=== PATIENT | male | born 1955 | race Caucasian/White ===

== ENCOUNTER 2025-08-25 12:31 | Emergency (ER) | payer MEDICARE ==
[~2025-08-25] VITALS: Ht 188 cm; Wt 109.1 kg
[2025-08-25] MEDS ORDERED: TAMSULOSIN HCL0.4 MG PO (12:45)
[2025-08-25] MEDS ORDERED: HYDROmorphone HCL 1 MG/ML SYR IV ONE (13:00)
[2025-08-25 13:13] LABS: BLOOD/HGB, URINE LARGE (Negative); KETONE, URINE TRACE (Negative); LEUK ESTERASE, URINE SMALL (negative); NITRITE, URINE POSITIVE (negative)
[2025-08-25 13:24] LABS: BASOPHILS 0.4 % (0.2-1.2); EOSINOPHILS 1.0 % (0.8-7.0); LYMPHOCYTES 8.5 % (21.8-53.1); MCH 29.9 PG (25.7-32.2); MCHC 32.9 g/dL (32.3-36.5); MCV 90.8 fL (79.0-92.2); MONOCYTES 7.7 % (5.3-12.2); NEUTROPHILS 81.6 % (34.0-67.9); RBC 5.22 M/uL (4.63-6.08)
[2025-08-25 13:26] LABS: BACTERIA, URINE RARE /hpf (negative); CASTS, URINE NONE SEEN \\lpf; CRYSTALS, URINE NONE SEEN (0-1+); EPITHELIAL CELLS, URINE 0 /lpf (0-1+); REFLEX CULTURE, URINE Yes (No)
[2025-08-25 13:42] LABS: ALT (SGPT) 16.0 U/L (14-59); AST (SGOT) 23.0 U/L (15-37); GLOMERULAR FILTRATION RATE,EST 95.0 mL/min (>60); PROTEIN, TOTAL 6.9 g/dL (6.4-8.2); UREA NITROGEN 19.0 mg/dL (7-18)
[2025-08-25 14:43] VITALS: BP 144/76
[2025-08-25] MEDS ORDERED: PERCOCET 5-3251 EACH PO (22:17)
== END 2025-08-25 14:50 | disposition home or self-care (01) ==
LOC: ED 12:31
PROVIDERS: Emergency Medicine
DX: N28.1 Cyst of kidney, acquired (principal); R31.9 Hematuria, unspecified
CPT/HCPCS: 36415; 71260; 74177; 80053; 81001; 85025; 87088; 96374; 96375; 99284-25; J1171; J2405; Q9967

== ENCOUNTER 2025-08-25 20:11 | Emergency (ER) | payer OTHER, MEDICARE ==
[~2025-08-25] VITALS: Ht 188 cm; Wt 107.9 kg
[~2025-08-25 20:11] MED LIST: TAMSULOSIN HCL0.4 MG PO
--- OUTSIDE RECORDS SUMMARY | 2025-08-25 20:18 | XMS ---
PreManage Notification: OLGA TAYLOR Security Log Rafter Events No recent Security Events currently on file CRITERIA MET - [facility] - 2 Visits in 30 Days CARE PROVIDERS There are no care providers on record at this time. Tony has no Care Guidelines for this patient. [facility] (12 MO[address] [facility] NOTE: Visits indicate total known visits. ED/C VISIT TRACKING (12 MO.) [facility] COMPLAINT: - FLANK PAIN 08/25/2025 12:32 [facility] TYPE: Emergency COMPLAINT: - BLOOD IN URINE INPATIENT VISIT TRACKING (12 MO.) No inpatient visits to display in this time frame [email or web address]
[2025-08-25 20:55] LABS: BASOPHILS 0.4 % (0.2-1.2); EOSINOPHILS 0.8 % (0.8-7.0); LYMPHOCYTES 9.5 % (21.8-53.1); MCH 29.5 PG (25.7-32.2); MCHC 33.0 g/dL (32.3-36.5); MCV 89.3 fL (79.0-92.2); MONOCYTES 7.8 % (5.3-12.2); NEUTROPHILS 81.0 % (34.0-67.9); RBC 5.22 M/uL (4.63-6.08)
[2025-08-25] MEDS ORDERED: MORPHINE SULFATE 4 MG/ML VIAL IV ONE (21:00)
[2025-08-25] MEDS ORDERED: ALBUTEROL/IPRATROPIUM 3 ML NEB INH ONE (21:00)
[2025-08-25 21:11] LABS: ALT (SGPT) 29.0 U/L (14-59); AST (SGOT) 20.0 U/L (15-37); GLOMERULAR FILTRATION RATE,EST 94.0 mL/min (>60); PROTEIN, TOTAL 6.8 g/dL (6.4-8.2); UREA NITROGEN 17.0 mg/dL (7-18)
[2025-08-25] MEDS ORDERED: OXYCODONE HCL 5 MG TAB PO ONE (21:30)
[2025-08-25] MEDS ORDERED: OXYCODONE/ACETAMINOPHEN 1 TAB HOME.PACK PO ONE (22:15)
[2025-08-25] MEDS ORDERED: PERCOCET 5-3251 EACH PO (22:17)
[2025-08-25 22:32] VITALS: BP 155/77
== END 2025-08-25 22:33 | disposition home or self-care (01) ==
LOC: ED 20:11
PROVIDERS: Internal Medicine
DX: S20.211A Contusion of right front wall of thorax, initial encounter (principal); N13.30 Unspecified hydronephrosis; W01.0XXA Fall on same level from slipping, tripping and stumbling without subsequent striking against object, initial encounter; Z79.899 Other long term (current) drug therapy
CPT/HCPCS: 36415; 71045; 74177; 80053; 83880; 84484; 85025; 94640; 96374; 96375; 99284-25; A9270; J2270; J2405; Q9967